=== PATIENT | male | born 1965 | race Caucasian/White ===

== ENCOUNTER 2019-06-03 06:49 | Emergency (ER) | payer OTHER ==
[~2019-06-03] VITALS: Ht 170.2 cm; Wt 70.3 kg
[2019-06-03] MEDS ORDERED: PRAVASTATIN SOD20 MG PO (07:02)
[2019-06-03] MEDS ORDERED: NICOTINE PATCH1 EACH TD (07:03)
[2019-06-03] MEDS ORDERED: QVAR REDIHALE10.6 G1 INH (07:03)
[2019-06-03] MEDS ORDERED: ASPIRIN81 MG PO (07:04)
[2019-06-03] MEDS ORDERED: DOXYCYCLINE MO100 M1 PO (07:04)
[2019-06-03] MEDS ORDERED: ALENDRONATE SOD70 MG PO (07:04)
[2019-06-03] MEDS ORDERED: ALBUTEROL2.5 MG/3 M INH (07:05)
[2019-06-03] MEDS ORDERED: IPRATROPIU0.2 MG/1 M INH (07:05)
[2019-06-03] MEDS ORDERED: METOPROLOL SUCC25 MG PO (07:05)
[2019-06-03] MEDS ORDERED: VENTOLIN HFA18 GM INH (07:06)
[2019-06-03] MEDS ORDERED: PREDNISONE20 MG PO (09:31)
--- NOTE | 2019-06-03 14:24 | EKG ---
[facility] [address] [facility] [place] [address] Signed Normal sinus rhythm Rightward axis Borderline ECG No previous ECGs available Confirmed by RAY MCCARTHY MD ([id number]) on 06/03/2019 2:23:46 PM Electronically Signed By: RAY MCCARTHY MD 06/03/19 1424 PATIENT NAME: CHANDAN DAMON Electrocardiogram DATE OF : 67 PHYSICIAN: RAY MCCARTHY MD REPORT #: [id number] REPORT IS CONFIDENTIAL AND NOT TO BE RELEASED WITHOUT AUTHORIZATION
== END 2019-06-03 09:37 | disposition home or self-care (01) ==
LOC: ED 06:49
DX: J44.1 Chronic obstructive pulmonary disease with (acute) exacerbation (principal); I10 Essential (primary) hypertension; I25.2 Old myocardial infarction; F17.200 Nicotine dependence, unspecified, uncomplicated; Z88.1 Allergy status to other antibiotic agents; Z79.899 Other long term (current) drug therapy; Z79.82 Long term (current) use of aspirin
CPT/HCPCS: 71045; 80053; 83735; 84484; 85025; 94640; 94761; 96374; 99285-25; 99406; J1100

== ENCOUNTER 2021-07-18 08:34 | Day surgery (SDC) | payer OTHER ==
[~2021-07-18] VITALS: Ht 170.2 cm; Wt 73.9 kg
[~2021-07-18 08:34] MED LIST: ACYCLOVIR400 MG PO; ALBUTEROL2.5 MG/3 M INH; ALENDRONATE SOD70 MG PO; ASPIRIN81 MG PO; DOXYCYCLINE MO100 M1 PO; FLOMAX0.4 MG PO; IBU800 MG PO; IPRATROPIU0.2 MG/1 M INH; METOPROLOL SUCC25 MG PO; NEURONTIN300 MG PO; NICOTINE PATCH1 EACH TD; PRAVASTATIN SOD20 MG PO; PREDNISONE20 MG PO; QVAR REDIHALE10.6 G1 INH; SINGULAIR10 MG PO; SUDAFED 12 HOU120 MG PO; VENTOLIN HFA18 GM INH
[2021-07-18] MEDS ORDERED: METOPROLOL SUCC50 MG PO (09:25)
[2021-07-18] MEDS ORDERED: VITAMIN D21250 MCG PO (09:31)
[2021-07-18] MEDS ORDERED: FAMOTIDINE20 MG PO (09:35)
[2021-07-18] MEDS ORDERED: INCRUSE ELLI62.5 MCG INH (09:35)
--- NOTE | 2021-07-18 11:23 | NUR ---
07/18/21 1123 Stephanie Ralph 1115 PATIENT ARRIVES TO PACU UNRESPONSIVE TO VERBAL STIMULI. RESP EVEN AND UNLABORED, SNORING, OXYMASK AT 3 LITERS. OXYMASK OFF, NC WITH CO2 MONITORING ON AND 3 LITERS. 1120 PATIENT AWAKENS TO REPEATED VERBAL STIMULI. BACK TO SLEEP, SNORING WHEN NOT STIMULATED. NC CONTINUED AT 3 LITERS WITH SATS >95%.
--- NOTE | 2021-07-19 05:57 | OR ---
[facility] [address] [place], [place] [address] Signed DATE OF OPERATION: 07/18/2021 SURGEON: Rosalinda Coughlin MD PREOPERATIVE DIAGNOSIS: Screening. POSTOPERATIVE DIAGNOSES: 1. 4-mm polyp at 7 cm. 2. 10-mm polyp at 10 cm (anterior, tattoo). 3. 10-mm polypoid lesion at 15 cm (snare). 4. Minimal to moderate sigmoid diverticulosis. 5. Moderate internal hemorrhoids. PROCEDURES: 1. Colonoscopy with hot biopsy, snare polypectomy, and injection of tattoo. 2. Rigid proctoscopy. ESTIMATED BLOOD LOSS: None. INDICATIONS: Chandan is a 56-year-old gentleman, asked to see me for a colonoscopy. He has moved here from [place] to be closer to his 's employment. 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 He spoke of a colonoscopy years ago in [place] for reasons that he cannot recall. To his memory everything was negative. He has been to his primary care provider here in [facility]. He was asked to see me for a colonoscopy. There is no family history of colon cancer or polyps. In the office, I gave him a pamphlet on colonoscopy. He understands the nature of that test. He tells me I helped his with colonoscopy. There is risk including, but not limited to gas bloating, crampy abdominal pain, bleeding, perforation requiring surgery, and missed diagnosis. We also discussed the need for IV conscious sedation. He had expressed understanding wished to proceed. PROCEDURE NOTE: Chandan was taken into our endoscopy suite and placed in the left lateral decubitus position. He was given a total of 125 mcg of fentanyl and 6 mg of Versed to cover the case. A digital rectal exam was performed and this did reveal slightly enlarged and moderately indurated prostate gland. After this, the adult colonoscope was introduced and advanced under direct visualization the camera without difficulty. His prep was Electronically Signed By: ROSALINDA COUGHLIN MD 07/19/21 0557 PATIENT NAME: CHANDAN DAMON OPERATIVE REPORT DATE OF : 67 REPORT #: [id number] PHYSICIAN: ROSALINDA COUGHLIN MD PCP: EDEL HANEY PA-C REPORT IS CONFIDENTIAL AND NOT TO BE RELEASED WITHOUT AUTHORIZATION [facility] [address] [place], [place] [address] Signed good. We could easily see the appendiceal orifice and the ileocecal valve. The scope was then slowly withdrawn. He does have diverticula in the sigmoid colon. They were moderate in size few to moderate in number and scattered about. At the top of the rectum was a 10 mm polypoid lesion. We easily removed it with the snare and suctioned through our scope. Back at 10 cm, we found a polyp about 10 mm and we removed it with several bites of our hot biopsy forceps. We then injected a tattoo at the base on the distal side. Then back just a little bit 7 cm, there was a small 4 mm polyp, which we removed with a hot biopsy forceps. The scope had been retroflexed and we could see that he has moderate internal hemorrhoid columns. One was a little irritated. After this, we removed the flexible colonoscope. The rigid proctoscope was then inserted and I could easily see his tattoo lesion anteriorly at 10 cm from the anal verge. After this, the proctoscope was opened and the gas was allowed to escape. Chandan was then awakened from his anesthesia and taken into the recovery room in stable condition. Rosalinda Coughlin MD ALB/MODL /[id number] cc: MD Edel Riley PA-C Copies: ROSALINDA COUGHLIN MD, CHLOE K PA-C ~ Electronically Signed By: ROSALINDA COUGHLIN MD 07/19/21 0557 PATIENT NAME: CHANDAN DAMON OPERATIVE REPORT DATE OF : 67 REPORT #: [id number] PHYSICIAN: ROSALINDA COUGHLIN MD PCP: EDEL HANEY PA-C REPORT IS CONFIDENTIAL AND NOT TO BE RELEASED WITHOUT AUTHORIZATION
--- NOTE | 2021-07-19 12:49 | PATH ---
[facility] [address] [place], [place] [address] Signed SPECIMEN(S): A COLON POLYP AT 7 CM SPECIMEN(S): B COLON POLYP AT 10 CM, ANTERIOR SPECIMEN(S): C COLON POLYP AT 15 CM SPECIMEN SOURCE: A. COLON POLYP AT 7 CM B. COLON POLYP AT 10 CM, ANTERIOR C. COLON POLYP AT 15 CM CLINICAL HISTORY: Pre: Screening colonoscopy. Post: Internal hemorrhoids, rectal polyps, diverticulosis. FINAL PATHOLOGIC DIAGNOSIS: A. Colon, polyp at 7 cm, polypectomy: - Hyperplastic polyp. - Negative for dysplasia or carcinoma. B. Colon, polyp at 10 cm, anterior, polypectomy: - Fragments of tubular adenoma. - Negative for high-grade dysplasia or carcinoma. C. Colon, polyp at 15 cm, polypectomy: - Hyperplastic polyp. - Negative for dysplasia or carcinoma. COMMENT: As part of [facility]' Quality Improvement Program, specimen C was reviewed by another member of our pathology staff. NAL:NRT:cml:C2NR MICROSCOPIC EXAMINATION: Histologic sections of all submitted blocks are examined by light microscopy. These findings, together with the gross examination, support the pathologic diagnosis. GROSS DESCRIPTION: Three specimens are received in three containers, labeled "JJ." A. The specimen, labeled "JJ, 1," and designated on the requisition "colon polyp at 7 cm," is received in formalin and consists of one harrison soft tissue fragment that measures 0.4 cm in greatest dimension. The specimen is entirely submitted in cassette (A1). B. The specimen, labeled "JJ, 2," and designated on the requisition "colon PATIENT NAME: CHANDAN DAMON PATHOLOGY DATE OF : 67 REPORT #: [id number] PHYSICIAN: PAT OHARA PCP: JONATHAN HANEY PA-C REPORT IS CONFIDENTIAL AND NOT TO BE RELEASED WITHOUT AUTHORIZATION [facility] [address] [place], [place] [address] Signed polyp at 10 cm, anterior," is received in formalin and consists of three harrison soft tissue fragments that measure 0.3 cm in greatest dimension. The specimen is entirely submitted in cassette (B1). C. The specimen, labeled "JJ, 3," and designated on the requisition "colon polyp at 15 cm," is received in formalin and consists of one polypoid, harrison soft tissue fragment that measures 0.7 cm in greatest dimension. The specimen is inked black, bisected, and entirely submitted in cassette (C1). AT (under the direct supervision of a pathologist) The Gross Description was prepared using a voice recognition system. The report was reviewed for accuracy; however, sound-alike word errors, addition and/or deletions may occur. If there is any question about this report, please contact Client Services. PERFORMING LABORATORY: The technical component was performed by [facility], [address] [place] [id number] (Curriculum Coordinator: Rosy Agrawal MD; CLIA# [id number]).[facility], [address] [address] (CLIA# [id number]). Diagnostician: Yoana Mckenzie MD Pathologist Electronically Signed 07/19/2021 Copies: ~ PATIENT NAME: CHANDAN DAMON PATHOLOGY DATE OF : 67 REPORT #: [id number] PHYSICIAN: PAT PATHOLOGY PCP: JONATHAN HANEY PA-C REPORT IS CONFIDENTIAL AND NOT TO BE RELEASED WITHOUT AUTHORIZATION
== END 2021-07-18 12:15 | disposition home or self-care (01) ==
LOC: OPS 08:34 → DS 08:34 → OPS 10:30 → DS 10:30 → OPS 12:15
PROVIDERS: ATTEND Colon & Rectal Surgery
PROC: 3E0H8KZ Introduction of Other Diagnostic Substance into Lower GI, Via Natural or Artificial Opening Endoscopic (ICD-10-PCS; 2021-07-18)
PROC: 0DBE8ZX Excision of Large Intestine, Via Natural or Artificial Opening Endoscopic, Diagnostic (ICD-10-PCS; principal; 2021-07-18 10:30)
PROC: 0DBP8ZX Excision of Rectum, Via Natural or Artificial Opening Endoscopic, Diagnostic (ICD-10-PCS; 2021-07-18 10:30)
DX: Z12.11 Encounter for screening for malignant neoplasm of colon (principal); D12.6 Benign neoplasm of colon, unspecified; K63.5 Polyp of colon; I25.10 Atherosclerotic heart disease of native coronary artery without angina pectoris; J44.9 Chronic obstructive pulmonary disease, unspecified; I25.2 Old myocardial infarction; M81.8 Other osteoporosis without current pathological fracture; T38.0X5S Adverse effect of glucocorticoids and synthetic analogues, sequela; I10 Essential (primary) hypertension; G25.81 Restless legs syndrome; N40.1 Benign prostatic hyperplasia with lower urinary tract symptoms; F17.210 Nicotine dependence, cigarettes, uncomplicated; K42.9 Umbilical hernia without obstruction or gangrene; Z88.8 Allergy status to other drugs, medicaments and biological substances
CPT/HCPCS: 99153; G0500; J2250; J3010; J7121

== ENCOUNTER → 2021-08-04 | Emergency (ER) | payer OTHER ==
[~2021-08-04] VITALS: Ht 170.2 cm; Wt 73.9 kg
[~2021-08-04] MED LIST changes: +FAMOTIDINE20 MG PO; +INCRUSE ELLI62.5 MCG INH; +METOPROLOL SUCC50 MG PO; +VITAMIN D21250 MCG PO
--- OUTSIDE RECORDS SUMMARY | 2021-08-04 17:52 | XMS ---
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 Arvin VISIT COUNT (12 MO.) [address] [place] [address] TOTAL 4 NOTE: Visits indicate total known visits. ED/UCC VISIT TRACKING (12 MO.) 08/04/2021 17:50 [facility] TYPE: Emergency COMPLAINT: - CHEST PAIN [facility]2021 [facility]/2021 15[facility] DIAGNOSES: - Chest Pain - Chest pain, unspecified - Chest pains 07/31/2021 08:42 Alessandro JOSÉ TYPE: Emergency COMPLAINT: - CHEST PAIN INPATIENT VISIT TRACKING (12 MO.) No inpatient visits to display in this time frame [id number]
--- NOTE | 2021-08-06 15:16 | EKG ---
[facility] [address] [facility] [place] [address] Signed Normal sinus rhythm Nonspecific ST abnormality Abnormal ECG When compared with ECG of 03-JUN-2019 06:54, ST more depressed in Lateral leads Confirmed by RAY MCCARTHY MD ([id number]) on 08/06/2021 3:16:31 PM Electronically Signed By: RAY MCCARTHY MD 08/06/21 1516 PATIENT NAME: CHANDAN DAMON Electrocardiogram DATE OF : 67 PHYSICIAN: RAY MCCARTHY MD REPORT #: [id number] REPORT IS CONFIDENTIAL AND NOT TO BE RELEASED WITHOUT AUTHORIZATION
== END ==
LOC: ED 17:49
DX: I21.4 Non-ST elevation (NSTEMI) myocardial infarction (principal); I25.2 Old myocardial infarction; I10 Essential (primary) hypertension; E78.5 Hyperlipidemia, unspecified; J44.9 Chronic obstructive pulmonary disease, unspecified; F17.200 Nicotine dependence, unspecified, uncomplicated; Z91.018 Allergy to other foods; Z88.8 Allergy status to other drugs, medicaments and biological substances; Z79.52 Long term (current) use of systemic steroids; Z79.51 Long term (current) use of inhaled steroids; Z79.899 Other long term (current) drug therapy; Z79.82 Long term (current) use of aspirin; Z20.822 Contact with and (suspected) exposure to COVID-19
CPT/HCPCS: 36415; 71045; 80053; 83735; 84484; 85025; 85610; 85730; 93005; 93010; 94640; C9803; J1650; U0003

== ENCOUNTER 2021-08-12 21:01 | Emergency (ER) | payer OTHER ==
[~2021-08-12] VITALS: Ht 170.2 cm; Wt 0.2 kg
--- OUTSIDE RECORDS SUMMARY | 2021-08-12 21:04 | XMS ---
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 Arvin VISIT COUNT (12 MO.) [address] [place] [address] TOTAL 5 NOTE: Visits indicate total known visits. ED/UCC VISIT TRACKING (12 MO.) 08/12/2021 21:02 DARY Mark [place] TYPE: Emergency COMPLAINT: - POST OP PROBLEM 08/04/2021 17:50 DARY Mark [place] TYPE: Emergency COMPLAINT: - CHEST PAIN DIAGNOSES: - [facility] (current) use of systemic steroids - Precordial pain - Non-ST elevation (NSTEMI) myocardial infarction - intermediate project manager (current) use of inhaled steroids - Allergy to other foods - Chronic obstructive pulmonary disease, unspecified - Nicotine dependence, unspecified, uncomplicated - Essential (primary) hypertension - intermediate project manager (current) use of aspirin - Hyperlipidemia, unspecified - Other assisted (current) drug therapy - Allergy status to other drugs, medicaments and biological substances - Old myocardial infarction [facility]2021 [facility] 07/31/2021 15:54 [facility] ESTEFANÍA TYPE: Emergency DIAGNOSES: - Chest Pain - Chest pain, unspecified - Chest pains 07/31/2021 08:42 Alessandro JOSÉ TYPE: Emergency COMPLAINT: - CHEST PAIN INPATIENT VISIT TRACKING (12 MO.) 08/04/2021 23:49 [facility] Prachi KHAN TYPE: Intensive Care DIAGNOSES: - Gastro-esophageal reflux disease without esophagitis - Other chronic pain - Presence of coronary angioplasty implant and graft - Non-ST elevation (NSTEMI) myocardial infarction - Pain in thoracic spine - Unspecified chronic bronchitis [email or web address]
[2021-08-12] MEDS ORDERED: BRILINTA90 MG PO (21:23)
[2021-08-12] MEDS ORDERED: ATORVASTATIN CA80 MG PO (21:23)
[2021-08-13] MEDS ORDERED: HYDROCODON-ACE1 EA10 PO (01:46)
--- NOTE | 2021-08-15 09:30 | EKG ---
[facility] [address] [facility] [place] [address] Signed Normal sinus rhythm Normal ECG Confirmed by RAY MCCARTHY MD ([id number]) on 08/15/2021 9:30:19 AM Electronically Signed By: RAY MCCARTHY MD 08/15/21 0930 PATIENT NAME: CHANDAN DAMON Electrocardiogram DATE OF : 67 PHYSICIAN: RAY MCCARTHY MD REPORT #: [id number] REPORT IS CONFIDENTIAL AND NOT TO BE RELEASED WITHOUT AUTHORIZATION
== END 2021-08-13 03:00 | disposition home or self-care (01) ==
LOC: ED 21:01
DX: M79.601 Pain in right arm (principal); M79.602 Pain in left arm; J44.9 Chronic obstructive pulmonary disease, unspecified; I10 Essential (primary) hypertension; E78.5 Hyperlipidemia, unspecified; I25.2 Old myocardial infarction; F17.200 Nicotine dependence, unspecified, uncomplicated; Z91.018 Allergy to other foods; Z88.1 Allergy status to other antibiotic agents; Z79.899 Other long term (current) drug therapy; Z79.52 Long term (current) use of systemic steroids; Z79.82 Long term (current) use of aspirin
CPT/HCPCS: 36415; 80053; 81001; 84484; 85025; 93005; 93010; 96374; 96375; 96376; 99283-25; J1170; J2405; J7030

== ENCOUNTER 2021-11-12 17:49 | Emergency (ER) | payer OTHER ==
[~2021-11-12] VITALS: Ht 170.2 cm; Wt 79.4 kg
[~2021-11-12 17:49] MED LIST changes: +ATORVASTATIN CA80 MG PO; +BRILINTA90 MG PO; +HYDROCODON-ACE1 EA10 PO
--- OUTSIDE RECORDS SUMMARY | 2021-11-12 17:52 | XMS ---
PreManage Notification: CHANDAN DAMON Security New Grad Rn Events No recent Security Events currently on file CRITERIA MET - [facility] - 6 ED Visits in 6 Months CARE PROVIDERS JONATHAN HANEY Physician Senior Designer Current PHONE: [phone] Colleen has no Care Guidelines for this patient. E.D. VISIT COUNT (12 MO.) [address] Miri Charles [address] [place], [place] [address]ario Alberto TOTAL 6 NOTE: Visits indicate total known visits. 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 - Pain in left arm - Allergy status to other antibiotic agents - Hyperlipidemia, unspecified - manager long term care (current) use of aspirin - Old myocardial infarction 08/04/2021 17:50 DARY Mark [place] TYPE: Emergency COMPLAINT: - CHEST PAIN DIAGNOSES: - Chronic obstructive pulmonary disease, unspecified - Old myocardial infarction - Allergy status to other drugs, medicaments and biological substances - Allergy status to other antibiotic agents - Pain in right leg - Other care home (current) drug therapy - Hyperlipidemia, unspecified - care home (current) use of aspirin - Essential (primary) hypertension - Nicotine dependence, unspecified, uncomplicated - care home (current) use of systemic steroids - Pure hypercholesterolemia, unspecified - Allergy to other foods - care home (current) use of inhaled steroids - Pain in right arm - Non-ST elevation (NSTEMI) myocardial infarction - Contact with and (suspected) exposure to COVID-19 - Pain in left arm - Pain in left leg - Precordial pain 07/31/2021 16:[facility] 07/31/2021 15[facility] DIAGNOSES: - Chest Pain - Chest pain, unspecified - Chest pains 07/31/2021 08:42 [place] Miri JOSÉ TYPE: Emergency COMPLAINT: - CHEST PAIN INPATIENT VISIT TRACKING (12 MO.) 08/04/2021 23:[address] Prachi KHAN TYPE: Intensive Care DIAGNOSES: - Gastro-esophageal reflux disease without esophagitis - Other chronic pain - Presence of coronary angioplasty implant and graft - Non-ST elevation (NSTEMI) myocardial infarction - Pain in thoracic spine - Unspecified chronic bronchitis [id number]
[2021-11-12] MEDS ORDERED: DOXYCYCLINE HY100 MG PO (18:54)
[2021-11-12] MEDS ORDERED: PREDNISONE20 MG PO (18:54)
--- NOTE | 2021-11-13 21:28 | EKG ---
[facility] [address] [facility] [place] [address] Signed Normal sinus rhythm Incomplete right bundle branch block Borderline ECG When compared with ECG of 12-AUG-2021 23:00, T wave inversion no longer evident in Inferior leads Confirmed by EDSON BROOKE MD ([id number]) on 11/13/2021 9:27:48 PM Electronically Signed By: EDSON BROOKE MD 11/13/212127 PATIENT NAME: CHANDAN DAMON Electrocardiogram DATE OF : 67 PHYSICIAN: EDSON BROOKE MD REPORT #: [id number] REPORT IS CONFIDENTIAL AND NOT TO BE RELEASED WITHOUT AUTHORIZATION
== END 2021-11-12 19:54 | disposition home or self-care (01) ==
LOC: ED 17:49
DX: J44.9 Chronic obstructive pulmonary disease, unspecified (principal); J20.9 Acute bronchitis, unspecified; Z20.822 Contact with and (suspected) exposure to COVID-19; I10 Essential (primary) hypertension; E78.00 Pure hypercholesterolemia, unspecified; I25.2 Old myocardial infarction; F17.200 Nicotine dependence, unspecified, uncomplicated; Z91.018 Allergy to other foods; Z88.8 Allergy status to other drugs, medicaments and biological substances; Z79.52 Long term (current) use of systemic steroids; Z79.82 Long term (current) use of aspirin; Z79.899 Other long term (current) drug therapy
CPT/HCPCS: 36415; 71045; 80053; 83735; 84484; 85025; 87502; 93005; 93010; 94640; 96374; 99285-25; C9803; J1100; U0003

== ENCOUNTER 2023-09-29 10:22 | Inpatient (IN) | payer OTHER ==
[~2023-09-29] VITALS: Ht 170.2 cm; Wt 71.0 kg
[~2023-09-29 10:22] MED LIST changes: +BENZONATATE100 MG PO; +CLOPIDOGREL75 MG PO; +DOXYCYCLINE HY100 MG PO; +EZETIMIBE10 MG PO; +PRAVASTATIN SOD80 MG PO; +PREDNISONE5 MG PO
--- OUTSIDE RECORDS SUMMARY | 2023-09-29 10:25 | XMS ---
PreManage Notification: CHANDAN DAMON Security Executive Producer Promos Events No recent Security Events currently on file CRITERIA MET - [facility] CARE PROVIDERS There are no care providers on record at this time. Colleen has no Care Guidelines for this patient. Arvin VISIT COUNT (12 MO.) 2 DARY Castillo TOTAL 2 NOTE: Visits indicate total known visits. ED/C VISIT TRACKING (12 MO.) 09/29/2023 10:22 DARY Mark [place] TYPE: Emergency COMPLAINT: - COLD SYMPTOMS 08/29/2023 12:22 DARY Mark [place] TYPE: Emergency COMPLAINT: - IRREGULAR HEART RATE, HIGH B/P DIAGNOSES: - Allergy status to other drugs, medicaments and biological substances - Allergy to other foods - Chest pain, unspecified - Chronic obstructive pulmonary disease, unspecified - Essential (primary) hypertension - Heartburn - snf (current) use of antithrombotics/antiplatelets - long term acute care registered nurse (current) use of aspirin - long term acute care registered nurse (current) use of systemic steroids - Nicotine dependence, cigarettes, uncomplicated - Nicotine dependence, unspecified, uncomplicated - Old myocardial infarction - Other termite control 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
[2023-09-29 11:13] LABS: BASOPHILS 0.3 % (0-2); EOSINOPHILS 0.3 % (0-6); HEMATOCRIT 42.3 % (35.0-50.0); HEMOGLOBIN 13.4 g/dL (12.0-18.0); LYMPHOCYTES 9.5 % (24-44); MCHC 31.8 g/dl (30-36); MONOCYTES 12.6 % (0-12); NEUTROPHILS 77.3 % (39-80); PLATELET COUNT 234 K/uL (140-440); RDW 15.7 (10.5-15.0)
[2023-09-29] MEDS ORDERED: ALBUTEROL/IPRATROPIUM 3 ML NEB INH ONE (11:15)
[2023-09-29] MEDS ORDERED: DEXAMETHASONE SOD PHOS 10 MG/ML VIAL IV ONE (11:15)
[2023-09-29 11:30] LABS: ALBUMIN 3.2 g/dL (3.4-5.0); ALBUMIN/GLOBULIN RATIO 0.89 (1.1-2.4); BILIRUBIN, TOTAL 0.5 ng/dL (0.2-1.0); BUN/CREATININE RATIO 13.59 (6.0-28.6); CALCIUM 8.5 mg/dL (8.5-10.1); CREATININE, SERUM 1.03 mg/dL (0.70-1.30); PROTEIN, TOTAL 6.8 g/dL (6.4-8.2)
[2023-09-29 12:11] LABS: INFLUENZA B NAA NEGATIVE (NEGATIVE); RESPIRATORY SYNCYTIAL VIR NAA NEGATIVE (NEGATIVE)
[2023-09-29] MEDS ORDERED: AZITHROMYCIN 250 MG TAB PO ONE (13:00)
[2023-09-29] MEDS ORDERED: CEFTRIAXONE/SODIUM CHLORIDE 1 GM/100 ML PIGGYBACK IV ONE ×2 (13:00→17:00)
[2023-09-29] MEDS ORDERED: ACETAMINOPHEN 325 MG TAB PO PRN (14:00)
[2023-09-29] MEDS ORDERED: ondansetron HCL 4 MG/2 ML VIAL IV PRN (14:00)
[2023-09-29] MEDS ORDERED: PROCHLORPERAZINE EDISYLATE 10 MG/2 ML VIAL IV PRN (14:00)
[2023-09-29] MEDS ORDERED: NICOTINE 21 MG/24 HR 1 EA TDSY TD SCH (14:02)
[2023-09-29 15:42] VITALS: BP 128/75
[2023-09-29 16:41] VITALS: BP 128/75
[2023-09-29] MEDS ORDERED: ALBUTEROL SULFATE 0.083% 3 ML VIAL INH PRN (16:45)
[2023-09-29] MEDS ORDERED: BENZONATATE 100 MG CAP PO PRN (17:30)
[2023-09-29 17:56] VITALS: BP 130/74
[2023-09-29] MEDS ORDERED: BUDESONIDE 0.5 MG/2 ML VIAL INH SCH (20:00)
[2023-09-29] MEDS ORDERED: ALBUTEROL/IPRATROPIUM 3 ML NEB INH SCH (20:00)
[2023-09-29] MEDS ORDERED: MELATONIN 3 MG TAB PO PRN (21:00)
[2023-09-29 21:46] VITALS: BP 118/68
--- NOTE | 2023-09-29 22:10 | EKG ---
[facility] [address] [place] [address] Signed Sinus tachycardia with occasional premature ventricular complexes Otherwise normal ECG When compared with ECG of 29-AUG-2023 13:30, fusion complexes are no longer present premature ventricular complexes are now present Confirmed by Belen Woodall MD () on 09/29/2023 10:10:36 PM Electronically Signed By: BELEN WOODALL MD 09/29/23 221 PATIENT NAME: NELSONCHANDAN TELLEZ Electrocardiogram DATE OF : 67 PHYSICIAN: BELEN WOODALL MD REPORT #: [id number] REPORT IS CONFIDENTIAL AND NOT TO BE RELEASED WITHOUT AUTHORIZATION
[2023-09-30] VITALS (7 sets, daily range): BP systolic 127–138; BP diastolic 63–81
[2023-09-30 05:52] LABS: BASOPHILS 0.4 % (0-2); HEMATOCRIT 41.9 % (35.0-50.0); HEMOGLOBIN 13.4 g/dL (12.0-18.0); LYMPHOCYTES 10.6 % (24-44); MCH 28.1 (27-36); MCV 87.7 fl (81-99); MONOCYTES 9.6 % (0-12); NEUTROPHILS 79.4 % (39-80); PLATELET COUNT 240 K/uL (140-440); RBC 4.77 M/ul (4.3-5.7); RDW 15.9 (10.5-15.0)
[2023-09-30 06:13] LABS: ALBUMIN 2.7 g/dL (3.4-5.0); ALBUMIN/GLOBULIN RATIO 0.64 (1.1-2.4); ANION GAP 14.3 (7-21); BILIRUBIN, TOTAL 0.3 ng/dL (0.2-1.0); CALCIUM 8.8 mg/dL (8.5-10.1); MAGNESIUM 2.2 mg/dL (1.8-2.4); PHOSPHORUS, INORGANIC 3.4 mg/dL (2.5-4.9); POTASSIUM 4.3 mmol/L (3.5-5.1); PROTEIN, TOTAL 6.9 g/dL (6.4-8.2)
[2023-09-30] MEDS ORDERED: DEXAMETHASONE SOD PHOS 10 MG/ML VIAL IV SCH (09:00)
[2023-09-30] MEDS ORDERED: ENOXAPARIN SODIUM 40 MG/0.4 ML SYR SUB-Q SCH (09:00)
[2023-09-30] MEDS ORDERED: AZITHROMYCIN 500 MG in DEXTROSE 5% 250 ML IV SCH (09:00)
[2023-09-30] MEDS ORDERED: CEFTRIAXONE/SODIUM CHLORIDE 2 GM/100 ML PIGGYBACK IV SCH (09:00)
[2023-09-30] MEDS ORDERED: AZITHROMYCIN250 MG PO (11:13)
[2023-09-30] MEDS ORDERED: CEFDINIR300 MG PO (11:13)
[2023-09-30] MEDS ORDERED: PREDNISONE20 MG PO (11:21)
[2023-09-30] MEDS ORDERED: PHARMACY RENAL DOSE ADJUSTMENT 1 DOSE MISC PO SCH (12:00)
== END 2023-09-30 12:25 | disposition home or self-care (01) | DRG 177 ==
LOC: ED 10:22 → MS 14:08
PROVIDERS: Emergency Medicine; ADMIT Family Medicine; ATTEND Family Medicine
PROC: 3E0333Z Introduction of Anti-inflammatory into Peripheral Vein, Percutaneous Approach (ICD-10-PCS; principal; 2023-09-29)
DX: U07.1 COVID-19 (principal); J18.9 Pneumonia, unspecified organism; J96.01 Acute respiratory failure with hypoxia; J44.0 Chronic obstructive pulmonary disease with (acute) lower respiratory infection; F17.210 Nicotine dependence, cigarettes, uncomplicated; I10 Essential (primary) hypertension; Z66 Do not resuscitate; E78.00 Pure hypercholesterolemia, unspecified; I25.2 Old myocardial infarction; Z95.5 Presence of coronary angioplasty implant and graft; Z98.890 Other specified postprocedural states; Z88.8 Allergy status to other drugs, medicaments and biological substances; Z91.018 Allergy to other foods; Z71.6 Tobacco abuse counseling; Z79.51 Long term (current) use of inhaled steroids; Z79.899 Other long term (current) drug therapy; Z79.02 Long term (current) use of antithrombotics/antiplatelets; Z79.82 Long term (current) use of aspirin; Z99.81 Dependence on supplemental oxygen
CPT/HCPCS: 36415; 71045; 80053; 83735; 83880; 84100; 84484; 85025; 87502; 93005; 93010; 94640; 94760; A9270; J0456; J0696; J1100; J1650; J7060; U0002

== ENCOUNTER 2024-03-10 09:41 | Emergency (ER) | payer OTHER ==
[~2024-03-10] VITALS: Ht 170.2 cm; Wt 71.9 kg
[~2024-03-10 09:41] MED LIST changes: +AZITHROMYCIN250 MG PO; +CEFDINIR300 MG PO
[2024-03-10] MEDS ORDERED: LISINOPRIL10 MG PO (10:02)
[2024-03-10] MEDS ORDERED: SODIUM CHLORIDE 0.9% 1,000 ML IV ONE (10:15)
[2024-03-10 10:38] LABS: BASOPHILS 1.6 % (0-2); EOSINOPHILS 1.6 % (0-6); HEMATOCRIT 43.3 % (35.0-50.0); HEMOGLOBIN 14.3 g/dL (12.0-18.0); LYMPHOCYTES 17.6 % (24-44); MCH 28.2 (27-36); MCV 85.3 fl (81-99); MONOCYTES 11.4 % (0-12); NEUTROPHILS 67.8 % (39-80); PLATELET COUNT 277 K/uL (140-440); RBC 5.08 M/ul (4.3-5.7); RDW 15.6 (10.5-15.0)
[2024-03-10 10:53] LABS: ALBUMIN 3.5 g/dL (3.4-5.0); ALBUMIN/GLOBULIN RATIO 1.03 (1.1-2.4); ANION GAP 12.2 (7-21); BILIRUBIN, TOTAL 0.4 ng/dL (0.2-1.0); BUN/CREATININE RATIO 18.36 (6.0-28.6); CALCIUM 9.2 mg/dL (8.5-10.1); CREATININE, SERUM 0.98 mg/dL (0.70-1.30); POTASSIUM 4.2 mmol/L (3.5-5.1); PROTEIN, TOTAL 6.9 g/dL (6.4-8.2)
[2024-03-10 11:27] LABS: BILIRUBIN, URINE NEGATIVE (negative); BLOOD/HGB, URINE NEGATIVE (Negative); KETONE, URINE NEGATIVE (Negative); LEUK ESTERASE, URINE NEGATIVE (negative); NITRITE, URINE NEGATIVE (negative); PH, URINE 6.5 (5-7)
[2024-03-10] MEDS ORDERED: CIPROFLOXACIN 500 MG TAB PO ONE (11:45)
[2024-03-10] MEDS ORDERED: metroNIDAZOLE 250 MG TAB PO ONE (11:45)
[2024-03-10] MEDS ORDERED: CIPRO500 MG PO (11:49)
[2024-03-10] MEDS ORDERED: HYDROCODON-ACE1 EA11 PO (11:49)
[2024-03-10] MEDS ORDERED: METRONIDAZOLE500 MG PO (11:49)
[2024-03-10 12:01] VITALS: BP 120/80
== END 2024-03-10 12:04 | disposition home or self-care (01) ==
LOC: ED 09:41
PROVIDERS: Emergency Medicine
DX: K57.32 Diverticulitis of large intestine without perforation or abscess without bleeding (principal); N40.0 Benign prostatic hyperplasia without lower urinary tract symptoms; J44.9 Chronic obstructive pulmonary disease, unspecified; I10 Essential (primary) hypertension; I25.2 Old myocardial infarction; F17.200 Nicotine dependence, unspecified, uncomplicated; Z88.8 Allergy status to other drugs, medicaments and biological substances; Z91.018 Allergy to other foods; Z79.899 Other long term (current) drug therapy; Z79.82 Long term (current) use of aspirin
CPT/HCPCS: 36415; 74177; 80053; 81003; 83690; 85025; 99284-25; J7030; Q9967

== ENCOUNTER 2024-06-25 17:23 | Emergency (ER) | payer OTHER ==
[~2024-06-25] VITALS: Ht 170.2 cm; Wt 67.1 kg
[~2024-06-25 17:23] MED LIST changes: +CIPRO500 MG PO; +HYDROCODON-ACE1 EA11 PO; +LISINOPRIL10 MG PO; +METRONIDAZOLE500 MG PO
[2024-06-25] MEDS ORDERED: ASPIRIN 81 MG CHEW PO ONE (17:30)
[2024-06-25] MEDS ORDERED: DUPIXENT P300 MG/2 M SQ (17:36)
[2024-06-25] MEDS ORDERED: TRELEGY ELLIPT1 EAC1 IH (17:36)
[2024-06-25] MEDS ORDERED: DAPAGLIFLOZIN5 MG PO (17:37)
[2024-06-25 17:43] LABS: BASOPHILS 0.9 % (0-2); EOSINOPHILS 1.9 % (0-6); HEMATOCRIT 45.2 % (35.0-50.0); HEMOGLOBIN 14.6 g/dL (12.0-18.0); LYMPHOCYTES 26.4 % (24-44); MCH 26.8 (27-36); MCHC 32.3 g/dl (30-36); MCV 83.1 fl (81-99); MONOCYTES 9.3 % (0-12); NEUTROPHILS 61.5 % (39-80); PLATELET COUNT 290 K/uL (140-440); RBC 5.45 M/ul (4.3-5.7)
[2024-06-25 18:00] LABS: ALBUMIN 3.8 g/dL (3.4-5.0); ALBUMIN/GLOBULIN RATIO 1.15 (1.1-2.4); ANION GAP 9.2 (7-21); BILIRUBIN, TOTAL 0.2 ng/dL (0.2-1.0); BUN/CREATININE RATIO 18.09 (6.0-28.6); CALCIUM 9.2 mg/dL (8.5-10.1); CREATININE, SERUM 1.05 mg/dL (0.70-1.30); MAGNESIUM 2.1 mg/dL (1.8-2.4); POTASSIUM 4.2 mmol/L (3.5-5.1); PROTEIN, TOTAL 7.1 g/dL (6.4-8.2)
[2024-06-25 19:40] VITALS: BP 126/72
--- NOTE | 2024-06-25 22:26 | EKG ---
[facility] [address] [place] [address] Signed Sinus rhythm with frequent premature ventricular complexes Otherwise normal ECG When compared with ECG of 29-SEP-2023 10:38, No significant change was found Confirmed by Belen Woodall MD () on 06/25/2024 10:26:41 PM Electronically Signed By: BELEN WOODALL MD 06/25/242225 PATIENT NAME: CHANDAN DAMON Electrocardiogram DATE OF : 67 PHYSICIAN: BELEN WOODALL MD REPORT #: [id number] REPORT IS CONFIDENTIAL AND NOT TO BE RELEASED WITHOUT AUTHORIZATION
== END 2024-06-25 19:40 | disposition home or self-care (01) ==
LOC: ED 17:23
PROVIDERS: Emergency Medicine
DX: R07.89 Other chest pain (principal); I10 Essential (primary) hypertension; E78.00 Pure hypercholesterolemia, unspecified; I25.2 Old myocardial infarction; J44.89 Other specified chronic obstructive pulmonary disease; F17.200 Nicotine dependence, unspecified, uncomplicated; Z95.5 Presence of coronary angioplasty implant and graft; Z91.018 Allergy to other foods; Z88.8 Allergy status to other drugs, medicaments and biological substances; Z79.01 Long term (current) use of anticoagulants; Z79.82 Long term (current) use of aspirin; Z79.51 Long term (current) use of inhaled steroids; Z79.899 Other long term (current) drug therapy
CPT/HCPCS: 36415; 71045; 80053; 83735; 84484; 85025; 93005; 93010; 99285-25; A9270

== ENCOUNTER 2024-09-01 16:13 | Emergency (ER) | payer OTHER ==
[~2024-09-01] VITALS: Ht 170.2 cm; Wt 70.7 kg
[~2024-09-01 16:13] MED LIST changes: +DAPAGLIFLOZIN5 MG PO; +DUPIXENT P300 MG/2 M SQ; +TRELEGY ELLIPT1 EAC1 IH
[2024-09-01 18:20] VITALS: BP 127/61
--- NOTE | 2024-09-02 12:43 | EKG ---
[facility] [address] [facility] [place] [address] Signed Sinus rhythm with occasional and consecutive premature ventricular complexes Incomplete right bundle branch block Abnormal ECG When compared with ECG of 25-JUN-2024 17:30, No significant change was found Confirmed by Fer Saravia DO ([id number]) on 09/02/2024 12:42:50 PM Electronically Signed By: FER SARAVIA DO 09/02/24 1243 PATIENT NAME: NELSONCHANDAN Electrocardiogram DATE OF : 67 PHYSICIAN: FER SARAVIA DO REPORT #: [id number] REPORT IS CONFIDENTIAL AND NOT TO BE RELEASED WITHOUT AUTHORIZATION
== END 2024-09-01 18:20 | disposition left against medical advice (07) ==
LOC: ED 16:13
DX: R07.9 Chest pain, unspecified (principal); R06.02 Shortness of breath; Z53.21 Procedure and treatment not carried out due to patient leaving prior to being seen by health care provider
CPT/HCPCS: 93005; 93010

== ENCOUNTER 2025-03-03 12:24 | Emergency (ER) | payer OTHER ==
[~2025-03-03] VITALS: Ht 170.2 cm; Wt 66.7 kg
--- OUTSIDE RECORDS SUMMARY | 2025-03-03 12:32 | XMS ---
PreManage Notification: CHANDAN DAMON Security Filament Shaper Events No recent Security Events currently on file CRITERIA MET - Group Notification CARE PROVIDERS There are no care providers on record at this time. Colleen has no Care Guidelines for this patient. Arvin VISIT COUNT (12 MO.) 4 DARY Castillo TOTAL 4 NOTE: Visits indicate total known visits. ED/C VISIT TRACKING (12 MO.) 03/03/2025 12:25 DARY Mark [place] TYPE: Emergency COMPLAINT: - RT WRIST INJURY 09/01/2024 16:13 DARY Mark [place] TYPE: Emergency COMPLAINT: - CHEST PAIN DIAGNOSES: - Chest pain, unspecified - Procedure and treatment not carried out due to patient leaving prior to being seen by health care provider - Shortness of breath 06/25/2024 17:23 DARY Mark [place] TYPE: Emergency COMPLAINT: - CHEST PAIN DIAGNOSES: - Allergy status to other drugs, medicaments and biological substances - Allergy to other foods - Chest pain, unspecified - Essential (primary) hypertension - [facility] (current) use of anticoagulants - ad terminal makeup operator (current) 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 of aspirin - [facility] (current) use of inhaled steroids - Nicotine dependence, unspecified, uncomplicated - Old myocardial infarction - Other chest pain - Other computer terminal operator (current) drug therapy - Other specified chronic obstructive pulmonary disease - Presence of coronary angioplasty implant and graft - Pure hypercholesterolemia, unspecified 03/10/2024 09:41 DARY Mark [place] TYPE: Emergency COMPLAINT: - ABDOMINAL PAIN DIAGNOSES: - Allergy status to other drugs, medicaments and biological substances - Allergy to other foods - Benign prostatic hyperplasia without lower urinary tract symptoms - Chronic obstructive pulmonary disease, unspecified - Diverticulitis of large intestine without perforation or abscess without bleeding - Essential (primary) hypertension - ad terminal makeup operator (current) use of aspirin - Lower abdominal pain, unspecified - Nicotine dependence, unspecified, uncomplicated - Old myocardial infarction - Other computer terminal operator (current) drug therapy INPATIENT VISIT TRACKING (12 MO.) No inpatient visits to display in this time frame [email or web address]
[2025-03-03 13:31] VITALS: BP 117/65
== END 2025-03-03 13:32 | disposition home or self-care (01) ==
LOC: ED 12:24
DX: S63.501A Unspecified sprain of right wrist, initial encounter (principal); I10 Essential (primary) hypertension; J44.89 Other specified chronic obstructive pulmonary disease; E78.00 Pure hypercholesterolemia, unspecified; I25.2 Old myocardial infarction; F17.200 Nicotine dependence, unspecified, uncomplicated; Z91.018 Allergy to other foods; Z91.048 Other nonmedicinal substance allergy status; Z88.8 Allergy status to other drugs, medicaments and biological substances; Z79.82 Long term (current) use of aspirin; Z79.51 Long term (current) use of inhaled steroids; Z79.899 Other long term (current) drug therapy; W01.0XXA Fall on same level from slipping, tripping and stumbling without subsequent striking against object, initial encounter
CPT/HCPCS: 73110; 99283